=== PATIENT | female | born 1960 | race Two or more races ===

== ENCOUNTER 2025-01-14 06:00 | Day surgery (SDC) | payer OTHER ==
[2024-12-27 12:17] VITALS: BP 137/89
[2024-12-27 13:41] LABS: BASO % 0.5 % (0.1-1.2); EOS # 0.06 (0.04-0.54); EOS % 1.0 % (0.7-7.0); LYMPH # 2.13 (1.18-3.74); LYMPH % 37.2 % (19.3-53.1); MEAN PLATELET VOLUME 11.40 fl (9.4-12.4); MONO # 0.37 (0.24-0.82); MONO % 6.5 % (4.7-12.5); NEUT # 3.12 (1.56-6.13); NEUT % 54.6 % (34.0-71.1); RED CELL DISTRIBUTION WIDTH 13.2 % (11.6-14.4)
[2024-12-27 13:45] LABS: URINE APPEARANCE Clear; URINE BILIRRUBIN Negative (NEGATIVE); URINE BLOOD Negative; URINE COLOR Yellow; URINE GLUCOSE Negative (NEGATIVE); URINE KETONE Negative (NEGATIVE); URINE LEUKOCYTE Negative; URINE NITRATE Negative; URINE PROTEIN Negative (NEGATIVE); URINE UROBILINOGEN 0.2 E.U./dl
[2024-12-27 13:52] LABS: URINE BACTERIA 32.3 uL (0.0-1933); URINE EPITHELIAL CELLS 2.7 uL (0.0-38.8); URINE RBC 7.9 uL (0.0-20.8)
[2024-12-27 13:54] LABS: URINE CAST 0.00 uL (0.0-1.40); URINE WBC 0.7 uL (0.0-23.2)
[2024-12-27 14:08] LABS: INR 0.98
[2024-12-27 14:22] LABS: ALT/SGPT 20.0 U/L (12-78); AST/SGOT 20.0 U/L (15-37); BILIRUBIN TOTAL 0.66 mg/dL (0.3-1.2); BUN CREA RATIO 26.0 (7.0-25.0); CREATININE SERUM 0.66 mg/dL (0.55-1.02); GFR 89.6; GLOBULINA 3.3 G/DL (2.4-3.5); GLUCOSE FASTING 97.0 mg/dL (65-100); OSMOLALITY SERUM 286.0 MOSM/KG (275-295)
[~2025-01-14] VITALS: Ht 162.6 cm; Wt 65.8 kg
[2025-01-14] MEDS ORDERED: LIDOCAINE HCL 1%/EPINEPHRINE 20ML VIAL IJ ONE (07:13)
[2025-01-14] MEDS ORDERED: DIBUCAINE 30 GM TUBE ONE (07:13)
[2025-01-14] MEDS ORDERED: BUPIVACAINE HCL/MPF 0.5% 30ML VIAL ONE (07:13)
[2025-01-14] MEDS ORDERED: POVIDONE-IODINE 118 ML BOTT TOP ONE (07:13)
[2025-01-14] MEDS ORDERED: HEMOSTATIC MATRIX 1 KIT KIT TOP ONE (07:13)
[2025-01-14] MEDS ORDERED: METRONIDAZOLE/SODIUM CHLORIDE 500 MG/100 ML PIGGYBACK IV ONE (07:14)
[2025-01-14] MEDS ORDERED: CEFTRIAXONE SODIUM 2,000 MG VIAL ONE (07:14)
[2025-01-14] MEDS ORDERED: COLACE100 MG PO (08:09)
[2025-01-14] MEDS ORDERED: TRAM1TAB98 PO (08:09)
== END 2025-01-14 14:00 | disposition home or self-care (01) ==
LOC: CIR.AMB 06:00 → EDBD 09:15 → CIR.AMB 09:15
PROVIDERS: ATTEND Surgery
DX: C21.0 Malignant neoplasm of anus, unspecified (principal); K62.89 Other specified diseases of anus and rectum